=== PATIENT | male | born 1985 | race Two or more races ===

== ENCOUNTER 2017-04-28 21:55 | Emergency (ER) | payer SELFPAY ==
[~2017-04-28] VITALS: Ht 180.3 cm; Wt 90.7 kg
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
--- NOTE | 2017-04-28 22:28 | NUR ---
DR WILSON AT BEDSIDE FOR EVAL.
--- NOTE | 2017-04-28 22:35 | NUR ---
IV LINE STARTED BLOOD DRAW.
--- NOTE | 2017-04-28 22:53 | NUR ---
RADIOLOGY AT BEDSIDE FOR CHEST XRAY.
[2017-04-28 23:05] LABS: BASOPHILS % (AUTO) 0.4 % (0.0-2.0); EOSINOPHILS # (AUTO) 0.1 /CMM (0.0-0.7); EOSINOPHILS % (AUTO) 0.5 % (0.0-6.0); HEMATOCRIT 46 % (39-51); HEMOGLOBIN 15.4 g/dL (13.5-17.5); LYMPHOCYTES # (AUTO) 1.5 /CMM (0.8-4.8); LYMPHOCYTES % (AUTO) 12.3 % (20.0-44.0); MEAN CORPUSCULAR HEMOGLOBIN 30 PG (26.0-33.0); MEAN CORPUSCULAR HGB CONC 33 g/dl (31.0-36.0); MEAN CORPUSCULAR VOLUME 89 fL (80-96); MONOCYTES # (AUTO) 0.8 /CMM (0.1-1.30); MONOCYTES % (AUTO) 6.6 % (2.0-12.0); NEUTROPHILS # (AUTO) 9.8 /CMM (1.8-8.9); NEUTROPHILS % (AUTO) 80.2 % (43.0-81.0); PLATELET COUNT (AUTO) 229 /CMM (150-450); RDW COEFFICIENT OF VARIATION 15.1 (11.5-15.0); RED BLOOD CELL COUNT(AUTO) 5.19 MIL/uL (4.5-6.0); WHITE BLOOD COUNT (AUTO) 12.2 K/uL (4.3-11.0)
--- NOTE | 2017-04-28 23:10 | NUR ---
PT STATES STILL UNABLE TO PROVIDE URINE SAMPLE. URINAL PROVIDED AT BEDSIDE.
[2017-04-28 23:19] LABS: CALCIUM, SERUM 8.9 mg/dL (8.5-10.1); CARBON DIOXIDE 26 mmol/L (21-32); CHLORIDE 107 mmol/L (98-107); GLUCOSE 109 mg/dL (74-106); POTASSIUM 3.6 mmol/L (3.5-5.1); SODIUM SERUM 143 mmol/L (136-145); UREA NITROGEN, BLOOD 18 mg/dL (7-18)
[2017-04-28 23:26] LABS: TROPONIN I < 0.017 ng/mL (0.00-0.056)
[2017-04-28 23:31] LABS: ALANINE AMINOTRANSFERASE 40 U/L (12-78); ALBUMIN 4.2 g/dL (3.4-5.0); ALKALINE PHOSPHATASE 76 U/L (46-116); ASPARTATE AMINOTRANSFERASE 22 U/L (15-37); B-TYPE NATRIURETIC PEPTIDE 16 PG/ML (0-125); BILIRUBIN,DIRECT 0.1 mg/dL (0.0-0.2); BILIRUBIN,TOTAL 0.3 mg/dL (0.2-1.0); TOTAL PROTEIN, SERUM 7.4 g/dL (6.4-8.2)
--- NOTE | 2017-04-28 23:40 | NUR ---
REPORT GIVEN TO CHARGE NURSE QUE FOR LAURA.
--- NOTE | 2017-04-29 01:24 | NUR ---
PT OK TO DISCHARGE HOME PER DR WILSON. IV removed. Catheter intact and site benign. Pressure and 4x4 applied to site. No bleeding noted.Patient discharged to home in stable condition. Written and verbal after care instructions given. Patient verbalizes understanding of instruction.Patient is awake and alert to self, day, and place. PT ambulatory with a steady gait
[2017-04-29 01:25] VITALS: BP 135/80
== END 2017-04-29 01:27 | disposition home or self-care (01) ==
LOC: ER 21:56
DX: R07.9 Chest pain, unspecified (principal); F17.200 Nicotine dependence, unspecified, uncomplicated; Z71.6 Tobacco abuse counseling
CPT/HCPCS: 36415; 71010-TC; 80048-TC; 80076-TC; 83880; 84484-TC; 85025-TC; 85378-TC; A4606; J2060; J7030; Z7610